=== PATIENT | male | born 1970 | race African-American/Black ===

== ENCOUNTER 2022-06-16 16:19 | Emergency (ER) | payer MEDICAID ==
[~2022-06-16] VITALS: Ht 188 cm; Wt 88.9 kg
[2022-06-16 16:24] VITALS: BP 102/66
--- NOTE | 2022-06-16 17:00 | NUR ---
Patient discharged with v/s stable. Written and verbal after care instructions ABOUT HAND CONTUSION given and explained. Patient verbalized understanding. Ambulatory with steady gait. All questions addressed prior to discharge. Advised to follow up with PMD.
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
== END 2022-06-16 17:00 | disposition home or self-care (01) ==
LOC: MED 16:19
DX: S60.022A Contusion of left index finger without damage to nail, initial encounter (principal); E11.9 Type 2 diabetes mellitus without complications; X58.XXXA Exposure to other specified factors, initial encounter; Y92.89 Other specified places as the place of occurrence of the external cause; Y93.89 Activity, other specified; Y99.8 Other external cause status
CPT/HCPCS: 99284